=== PATIENT | male | born 2000 | race Caucasian/White ===

== ENCOUNTER 2019-11-04 20:33 | Emergency (ER) | payer BC ==
[2019-11-04 21:38] VITALS: BP 126/82; PULSE 73
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
== END 2019-11-04 23:39 | disposition home or self-care (01) ==
LOC: DL.ED 20:33
DX: S20.212A Contusion of left front wall of thorax, initial encounter (principal); J45.909 Unspecified asthma, uncomplicated; Z79.899 Other long term (current) drug therapy; V86.52XA Driver of snowmobile injured in nontraffic accident, initial encounter
CPT/HCPCS: 71101-LT; 99283-25

== ENCOUNTER 2023-11-17 21:39 | Emergency (ER) | payer BC ==
[2023-11-17] MEDS ORDERED: Sodium Chloride 0.9% 10 ML Syringe FLUSH PRN (21:58)
[2023-11-17] MEDS ORDERED: Sodium Chloride 0.9% 1,000 ML IV ONE (22:00)
[2023-11-17] MEDS ORDERED: Ketorolac 30 MG/ML SDV IVPUSH ONE (22:00)
[2023-11-17] MEDS ORDERED: Acetaminophen 500 MG Tab PO ONE (22:00)
[2023-11-17] MEDS ORDERED: Ondansetron 4 MG/2 ML SDV IVPUSH ONE (22:01)
[2023-11-17 22:12] LABS: BASOPHILS PERCENT AUTO 0.4 % (0.0-1.0); EOSINOPHILS PERCENT AUTO 0.1 % (1.0-3.0); HEMATOCRIT 47.1 % (40.0-54.0); HEMOGLOBIN 16.5 g/dL (14.0-18.0); LYMPHOCYTES PERCENT AUTO 10.3 % (20.5-50.1); MEAN CORPUSCULAR HEMOGLOBIN 28.6 pg (27.0-34.0); MEAN CORPUSCULAR VOLUME 81.8 fL (80-100); MONOCYTES PERCENT AUTO 21.3 % (2-8); NEUTROPHILS PERCENT AUTO 67.9 % (42.2-75.2); PLATELET COUNT,PLT 234 10^3/uL (150-450); RED BLOOD CELL COUNT 5.76 10^6/uL (4.6-6.2)
[2023-11-17 22:20] VITALS: BP 120/89; PULSE 131
[2023-11-17 22:32] LABS: A/G RATIO 1.3; ALBUMIN 4.3 g/dL (3.4-5.0); ANION GAP 15.7 mEq/L (7-13); BILIRUBIN TOTAL 0.7 mg/dL (0.2-1.0); BUN/CREATININE RATIO 6.7 (No establ ref range); C-REACTIVE PROTEIN 3.36 ng/dL (<=0.50); CALCIUM 9.5 mg/dL (8.5-10.1); CREATININE 1.35 mg/dL (0.70-1.30); EST CRCL DRUG DOSING (CG) 78.88 mL/min; POTASSIUM,K 3.7 mmol/L (3.5-5.1); PROTEIN TOTAL,TP 7.6 g/dL (6.4-8.2)
[2023-11-17 22:35] LABS: LACTIC ACID 1.1 mmol/L (0.4-2.0)
[2023-11-17 22:46] LABS: CORONAVIRUS COVID-19 NAA NEGATIVE (NEGATIVE); INFLUENZA A NAA POSITIVE (NEGATIVE); INFLUENZA B NAA NEGATIVE (NEGATIVE)
[2023-11-17] MEDS ORDERED: Take Home: Ondansetron 4 MG Tab.DIS, 5 Tab Pack PO ONE (22:54)
== END 2023-11-17 23:11 | disposition home or self-care (01) ==
LOC: DL.ED 21:39
DX: J10.1 Influenza due to other identified influenza virus with other respiratory manifestations (principal); J45.909 Unspecified asthma, uncomplicated; Z79.899 Other long term (current) drug therapy
CPT/HCPCS: 0240U; 36415; 71046; 80053; 82550; 83605; 85025; 86140; 87040; 87081; 87430; 96361; 96374; 96375; 99284; 99285-25; A9270-GY; J1885; J2405; J3490; J7030; Q0162